=== PATIENT | male | born 1995 | race Caucasian/White ===

== ENCOUNTER 2019-06-11 02:31 | Emergency (ER) | payer BC, SELFPAY ==
[2019-06-11 02:32] VITALS: BP 144/106; PULSE 79; RESP 18; TEMP 36.9; O2SAT 99; BMI 22.6
--- NOTE | 2019-06-11 02:38 | CT_ITS ---
STUDY: CT BRAIN WITHOUT CONTRAST REASON FOR EXAM: Male, 23 years old. Injury RADIATION DOSAGE (If Supplied By Facility): CTDIvol = ( 44.99 ) mGy, DLP = ( 779.24 ) mGycm TECHNIQUE: Transaxial CT imaging of the brain was performed without administration of intravenous contrast material. Individualized dose optimization techniques were used for this CT. COMPARISON: No relevant priors. FINDINGS: Normal soft tissue structures. Normal calvarium. Normal size ventricles and extra-axial spaces for the patient's age. Normal white matter tracts of the cerebral hemispheres. Normal basal ganglia and thalami. Normal brainstem. Normal cerebellum. There is no intracranial hemorrhage. There are no findings of an acute ischemic infarction. Normal visualized paranasal sinuses. CT/Brain/Head without Contrast IMPRESSION: Normal unenhanced CT scan of the brain. No acute findings in the brain Electronically Signed: Kraig Temple MD at 3:47 EDT Tel , Service support ,
--- NOTE | 2019-06-11 02:39 | ED.VIS.GEN ---
History of Present Illness Chief Complaint: Head Injury Narrative: Patient is a 23-year-old male who presents with a head injury. He was fishing yesterday and he was walking down an embankment when he slipped and hit his head against a rock that was sticking up out of the ground. There was no loss of consciousness but he reports that he saw stars. No amnesia. He complains of a moderate severity headache which she rates as 6 out of 10. He reports nausea without vomiting. He complains of feeling foggy. No recent illness. He denies medical history. Past Medical History - Allergies and Home Meds Allergies/Adverse Reactions: Allergies Penicillins Allergy (Verified 11/04/13 19:30) Unknown Primary Care Physician: Renzo Bell MD [Primary Care Provider] - Prior records reviewed: Yes Past Medical History: None Smoking Status: Former smoker Review of Systems All systems negative except as indicated General: Denies: Fever Cardiovascular: Denies: Chest pain Respiratory: Denies: Dyspnea Gastrointestinal: Reports: Nausea Neurological: Reports: Headache Physical Exam Vital Signs/Narrative: Vital Signs Temp Pulse Resp BP Pulse Ox 06/11/19 02:32 98.4 F 79 18 144/106 H 99 Inital Vital Signs reviewed: Yes General: Well nourished Head: Normocephalic, Atraumatic Eyes: Perrl, EOMI ENT: Moist mucous membranes Neck: Supple Cardiovascular: Regular rate, Regular rhythm Respiratory: No distress, CTA bilaterally Abdomen: Soft Skin: Normal color Neurological: Alert, Normal Strength, Normal Sensation, - - GCS of 15 with no focal or lateralizing neurological deficits Psychological: Normal affect Diagnostic/Tx/Re-eval - Medical Decision Making CT of the head was obtained which is normal. Patient advised on signs and symptoms to monitor for. He was instructed on brain rest. He understands to return for new or worsening symptoms and was discharged home. ED Disposition - Plan for ED Patient: Disposition: Home or Assisted Living Diagnosis: Closed head injury Instructions: HEAD INJURY, No Wake-Up (Adult) Referrals: Renzo Bell MD [Primary Care Provider] -
[2019-06-11 03:59] VITALS: BP 136/80; PULSE 60; RESP 18; O2SAT 97
== END 2019-06-11 04:00 | disposition home or self-care (01) ==
PROVIDERS: Emergency Provider Emergency Medicine; Family Provider Pediatrics; PCP Pediatrics
DX: S09.90XA Unspecified injury of head, initial encounter (principal); W01.0XXA Fall on same level from slipping, tripping and stumbling without subsequent striking against object, initial encounter; Y93.01 Activity, walking, marching and hiking; Z87.891 Personal history of nicotine dependence
CPT/HCPCS: 70450; 99282